=== PATIENT | male | born 1995 | race Caucasian/White ===

== ENCOUNTER 2017-05-18 22:58 | Emergency (ER) | payer MEDICAID ==
[2017-05-18 23:05] VITALS: TEMP 98.6
[2017-05-18] MEDS ORDERED: ONDANSETRON 4 MG/2 ML VIAL ONE (23:13)
[2017-05-18] MEDS ORDERED: ONDANSETRON 4 MG/2 ML VIAL IVP ONE (23:16)
[2017-05-18] MEDS ORDERED: NS 1,000 ML IV ONE (23:16)
[2017-05-18 23:19] VITALS: RESP 16
--- NOTE | 2017-05-18 23:24 | EDPHY ---
H & P Stated Complaint: N/V/D, abd pain Time Seen by Provider: 05/18/17 23:14 HPI/ROS: HPI The patient presents with nausea, vomiting diarrhea which began after dinner. He developed nausea and then threw up several times, nonbloody, nonbilious emesis. This was followed by diarrhea any had several episodes. He is able to take small sips of water. He is reporting epigastric pain which is crampy in nature and moderate in severity. He also feels somewhat lightheaded when he stands up. He does not have a fever. He does not have any sick contacts. Other family members who ate the same dinner are not ill. He says over the last 1 week he has had a cough, sore throat, runny nose.. REVIEW OF SYSTEMS Constitutional: No fever, no chills. Eyes: No discharge. ENT: No sore throat. Cardiovascular: No chest pain, no palpitations. Respiratory: No cough, no shortness of breath. Gastrointestinal: No abdominal pain, no vomiting. Genitourinary: No hematuria. Musculoskeletal: No back pain. Skin: No rashes. Neurological: No headache. PMHx: Brain tumor of some sort, history of nausea Soc Hx: Housed PHYSICAL General Appearance: Alert, no distress Eyes: Pupils equal and round no pallor or injection ENT, Mouth: Mucous membranes dry Respiratory: There are no retractions, lungs are clear to auscultation Cardiovascular: Regular rate and rhythm Gastrointestinal: Abdomen is soft with epigastric tenderness, no masses, bowel sounds normal Neurological: A&O, moves all extremities Skin: Warm and dry, no rashes Musculoskeletal: Neck is supple non tender Extremities: symmetrical, full range of motion Psychiatric: Patient is oriented X 3, there is no agitation Source: Patient - Personal History Current Tetanus/Diphtheria Vaccine: Unsure - Medical/Surgical History Hx Asthma: Yes Hx Chronic Respiratory Disease: No Hx Diabetes: No Hx Cardiac Disease: No Hx Renal Disease: No Hx Cirrhosis: No Hx Alcoholism: No Hx HIV/AIDS: No Hx Splenectomy or Spleen Trauma: No Other PMH: BRAIN TUMOR, CHRONIC NAUSEA, FATIGUE, HOT FLASHES; - Social History Smoking Status: Former smoker Constitutional: Initial Vital Signs Temperature (C) 37 C 05/18/17 23:01 Heart Rate 99 05/18/17 23:01 Respiratory Rate 18 05/18/17 23:01 Blood Pressure 94/48 L 05/18/17 23:01 O2 Sat (%) 99 05/18/17 23:01 O2 Delivery Mode Room Air Allergies/Adverse Reactions: No Known Allergies Allergy (Unverified 11/28/14 21:05) Home Medications: Medication Instructions Recorded Ondansetron Odt [Zofran Odt 4 mg 4 mg PO Q4 PRN #10 tab 05/19/17 (*)] Medical Decision Making Differential Diagnosis: 21-year-old male, healthy, presents with nausea, vomiting, diarrhea. On exam, his vital signs are normal, mucous membranes are dry, he has epigastric tenderness. Differential diagnosis includes viral gastroenteritis, toxin mediated enterocolitis, cholecystitis, gastritis. In the emergency department, patient was given 2 L of IV fluid and Zofran IV with improvement in his symptoms. Repeat abdominal exam is benign. Labs were checked and did reveal leukocytosis with signs of dehydration. He felt well enough to drink fluids and will be discharged home with Zofran 0 DT. I feel he likely is suffering from a gastroenteritis. - Data Points Laboratory Results: Laboratory Results 05/18/17 23:15 05/18/17 23:15 05/18/17 05/18/17 23:15 23:15 WBC 14.44 10^3/uL H 10^3/uL (3.80-9.50) RBC 5.06 10^6/uL 10^6/uL (4.40-6.38) Hgb 15.9 g/dL g/dL (13.7-17.5) Hct 44.9 % % (40.0-51.0) MCV 88.7 fL fL (81.5-99.8) MCH 31.4 pg pg (27.9-34.1) MCHC 35.4 g/dL g/dL (32.4-36.7) RDW 12.2 % % (11.5-15.2) Plt Count 237 10^3/uL 10^3/uL (150-400) MPV 8.8 fL fL (8.7-11.7) Neut % (Auto) 89.3 % H % (39.3-74.2) Lymph % (Auto) 5.2 % L % (15.0-45.0) [place] % (Auto) 4.6 % % (4.5-13.0) Eos % (Auto) 0.3 % L % (0.6-7.6) Baso % (Auto) 0.3 % % (0.3-1.7) Nucleat RBC Rel Count 0.0 % % (0.0-0.2) Absolute Neuts (auto) 12.89 10^3/uL H 10^3/uL (1.70-6.50) Absolute Lymphs (auto) 0.75 10^3/uL L 10^3/uL (1.00-3.00) Absolute Monos (auto) 0.66 10^3/uL 10^3/uL (0.30-0.80) Absolute Eos (auto) 0.04 10^3/uL 10^3/uL (0.03-0.40) Absolute Basos (auto) 0.05 10^3/uL 10^3/uL (0.02-0.10) Absolute Nucleated RBC 0.00 10^3/uL 10^3/uL (0-0.01) Immature Gran % 0.3 % % (0.0-1.1) Immature Gran # 0.05 10^3/uL 10^3/uL (0.00-0.10) Sodium 147 mEq/L H mEq/L (134-144) Potassium 3.7 mEq/L mEq/L (3.5-5.2) Chloride 101 mEq/L mEq/L (97-110) Carbon Dioxide 27 mEq/l mEq/l (22-31) Anion Gap 19 mEq/L H mEq/L (8-16) BUN 18 mg/dL mg/dL (7-23) Creatinine 0.9 mg/dL mg/dL (0.7-1.3) Estimated GFR > 60 Glucose 116 mg/dL H mg/dL (70-100) Calcium 9.6 mg/dL mg/dL (8.5-10.4) Total Bilirubin 1.4 mg/dL mg/dL (0.1-1.4) AST 28 IU/L IU/L (17-59) ALT 39 IU/L IU/L (21-72) Alkaline Phosphatase 74 IU/L IU/L (38-126) Total Protein 8.1 g/dL g/dL (6.3-8.2) Albumin 4.5 g/dL g/dL (3.5-5.0) Medications Given: Discontinued Medications Sodium Chloride (Ns) 1,000 mls @ 0 mls/hr IV ONCE ONE PRN Reason: Wide Open Stop: 05/18/17 23:17 Last Admin: 05/18/17 23:17 Dose: 1,000 mls Ondansetron HCl (Zofran) 4 mg IVP EDNOW ONE Stop: 05/18/17 23:17 Last Admin: 05/18/17 23:18 Dose: 4 mg Ondansetron HCl (Zofran Odt 4 Mg Prepack#2) 1 btl TAKEHOME EDNOW ONE Stop: 05/19/17 00:42 Last Admin: 05/19/17 00:48 Dose: 1 btl Departure - Departure Disposition: Home, Routine, Self-Care Clinical Impression: Vomiting and diarrhea Condition: Good Instructions: Ondansetron (By mouth), Acute Nausea and Vomiting (ED) Additional Instructions: Please return to the emergency department if your worse in any way. Referrals: CHRISTY MORALES [Primary Care Provider] - As per Instructions Prescriptions: Ondansetron Odt [Zofran Odt 4 mg (*)] 4 mg PO Q4 PRN #10 tab PRN Reason: Nausea/Vomiting, Can'T Take Po
[2017-05-18 23:26] LABS: PLATELET COUNT 237 10^3/uL (150-400)
[2017-05-19] MEDS ORDERED: ONDANSETRON 4MG PREPACK#2 BTL TAKEHOME ONE (00:41)
[2017-05-19 00:52] VITALS: BP 112/68; PULSE 90; O2SAT 98
== END 2017-05-19 01:04 | disposition home or self-care (01) ==
DX: R11.10 Vomiting, unspecified (principal); R19.7 Diarrhea, unspecified; J45.909 Unspecified asthma, uncomplicated; Z87.891 Personal history of nicotine dependence; Z85.841 Personal history of malignant neoplasm of brain
CPT/HCPCS: 96374; J2405